=== PATIENT | male | born 1990 | race Caucasian/White ===

== ENCOUNTER 2020-10-25 17:47 | Emergency (ER) | payer OTHER ==
[~2020-10-25] VITALS: Ht 172.7 cm; Wt 74.8 kg
[2020-10-25] MEDS ORDERED: BUPR1FIL SL (18:32)
[2020-10-25] MEDS ORDERED: BUPRENORPHINE HCL 2 MG TAB.SUBL SL ONE ×3 (18:51→19:00)
[2020-10-25 18:55] VITALS: BP 146/102
== END 2020-10-25 19:34 ==
LOC: ER 17:50
DX: F11.23 Opioid dependence with withdrawal (principal); F10.10 Alcohol abuse, uncomplicated; Y90.9 Presence of alcohol in blood, level not specified; Z20.89 Contact with and (suspected) exposure to other communicable diseases; Z79.899 Other long term (current) drug therapy